=== PATIENT | female | born 2000 | race Caucasian/White ===

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

== ENCOUNTER 2018-05-15 18:25 | Emergency (ER) | payer MEDICAID, OTHER ==
[2018-05-15] MEDS ORDERED: PHENAZOPYRIDINE HCL 200 MG TABLET PO ONE (20:32)
--- NOTE | 2018-05-15 20:57 | ER Document Report ---
HPI - HPI Patient complains to provider of: dysuria Time Seen by Provider: 05/15/18 20:10 Pain Level: 5 Context: Patient is a 18-year-old female presenting to the emergency department with her mother for dysuria. Patient states she has had dysuria for the last week. Mother states she just recently told her about the dysuria. Patient states it has been really hard to urinate for the last 3 days. Patient states when she urinates she feels a burning sensation, unsure if this is coming from her urine or if it is touching lesions in her vagina which are causing the pain. Mother states patient's only medical history is bipolar, and anxiety. Patient is obviously delayed, holding a stuffed animal and using baby talk when answering questions. Past medical history: Anxiety, bipolar medications: BuSpar, Ativan, Celexa, desmopressin, Seroquel, Topamax Allergies: None - URINARY Urinary: REPORTS: Dysuria - REPRODUCTIVE Reproductive: DENIES: : Past Medical History - General Information source: Patient, Parent - Social History Smoking Status: Never Smoker Chew tobacco use (# tins/day): No Drug Abuse: None Lives with: Family Family History: Reviewed & Not Pertinent Patient has suicidal ideation: No Patient has homicidal ideation: No Renal/ Medical History: Denies: Hx Peritoneal Dialysis Psychiatric Medical History: Reports: Hx Attention Deficit Hyperactivity Disorder, Hx Bipolar Disorder, Hx Depression, Hx Schizophrenia - Immunizations Immunizations up to date: Yes Hx Diphtheria, Pertussis, Tetanus Vaccination: Yes Vertical Provider Document - CONSTITUTIONAL Agree With Documented VS: Yes Notes: GENERAL: Alert, interacts well. No acute distress. HEAD: Normocephalic, atraumatic. EYES: Pupils equal, round, and reactive to light. Extraocular movements intact. ENT: Oral mucosa moist, tongue midline. NECK: Full range of motion. Supple. Trachea midline. LUNGS: Clear to auscultation bilaterally, no wheezes, rales, or rhonchi. No respiratory distress. HEART: Regular rate and rhythm. No murmur ABDOMEN: Obese soft, non-tender. Non-distended. Bowel sounds present in all 4 quadrants. EXTREMITIES: Moves all 4 extremities spontaneously. No edema, normal radial and dorsalis pedis pulses bilaterally. No cyanosis. BACK: no cervical, thoracic, lumbar midline tenderness. No saddle anesthesia, normal distal neurovascular exam. NEUROLOGICAL: Alert and oriented x3. Talking in baby talk, mother states this is patient's normal due to her bipolar. Cranial nerves II through XII grossly intact. PSYCH: Normal affect, normal mood. SKIN: Warm, dry, normal turgor. No rashes or lesions noted. - INFECTION CONTROL TRAVEL OUTSIDE OF THE [place] IN LAST 30 DAYS: No Course - Re-evaluation Re-evalutation: 05/15/18 20:58 I assisted nursing staff in getting urine sample via catheter. Patient states she was unable to urinate because it hurts so much. External vaginal exam revealed white and green discharge, beefy red labia minora. Discussed doing a pelvic exam with mother to rule out other reasons for her dysuria, vaginal discharge. Mother states she is okay with having the patient go through a pelvic exam. Discussed at length what a pelvic exam was with the patient and she also agrees. 05/15/18 23:04 Pelvic exam reveals malodorous white discharge. Labia minora and vaginal pain beefy red and irritated. Test came back with positive yeast, positive bacterial vaginosis. Will treat patient for same. Nurse was able to drain the patient's bladder with a urine catheter. Patient states she feels a lot better. Urine reveals no signs of infection. - Vital Signs Vital signs: Temp Pulse Resp BP Pulse Ox 98.6 F 106 H 16 144/93 H 99 05/15/18 18:38 05/15/18 18:38 05/15/18 18:38 05/15/18 18:38 05/15/18 18:38 Discharge - Discharge Clinical Impression: Yaa albicans infection, Bacterial vaginosis Condition: Stable Disposition: HOME, SELF-CARE Instructions: Vaginal Yeast Infection ([facility]), Vaginosis, Bacterial ([facility]) Additional Instructions: You should use medications as prescribed. Please follow-up with the patient's primary care provider or EMPLOYEE BENEFITS ADMINISTRATOR. Please return to the emergency room for any other concerning symptoms. Prescriptions: Fluconazole [Diflucan] 150 mg PO ONCE PRN #1 tablet PRN Reason: Metronidazole [Flagyl 500 mg Tablet] 500 mg PO BID #14 tablet
[2018-05-15 21:12] LABS: APPEARANCE,URINE SLIGHTLY-CLOUDY; BILIRUBIN,URINE NEGATIVE (NEGATIVE); COLOR,URINE YELLOW; GLUCOSE, URINE NEGATIVE (NEGATIVE); KETONES,URINE NEGATIVE (NEGATIVE); LEUKOCYTE ESTERASE,URINE NEGATIVE (NEGATIVE); NITRITE,URINE NEGATIVE (NEGATIVE); PROTEIN,URINE NEGATIVE (NEGATIVE); URINE SPECIFIC GRAVITY 1.031
[2018-05-15 21:35] LABS: BACTERIA (WET MOUNT) 3+ BACTERIA SEEN; T.VAGINALIS (WET MOUNT) NO TRICHOMONAS SEEN; WBCS (WET MOUNT) 3+ WBCS SEEN; YEAST (WET MOUNT) YEAST SEEN
[2018-05-15] MEDS ORDERED: FLUCONAZOLE 100 MG TABLET PO ONE (21:55)
[2018-05-15] MEDS ORDERED: MICONAZOLE NITRATE 2% VAGINAL CREAM 45 GM TUBE VG ONE (21:56)
[2018-05-15] MEDS ORDERED: MICONAZOLE NITRATE 2% VAGINAL CREAM 45 GM TUBE ONE (22:13)
[2018-05-15 22:58] LABS: CHLAM PCR NOT DETECTED (NOT DETECT); GON PCR NOT DETECTED (NOT DETECT)
[2018-05-16 01:12] VITALS: BP 130/85
== END 2018-05-15 23:30 | disposition home or self-care (01) ==
LOC: ER 18:25
DX: N76.0 Acute vaginitis (principal); B96.89 Other specified bacterial agents as the cause of diseases classified elsewhere; B37.9 Candidiasis, unspecified; F41.9 Anxiety disorder, unspecified; F31.9 Bipolar disorder, unspecified; F20.9 Schizophrenia, unspecified; Z79.899 Other long term (current) drug therapy
CPT/HCPCS: 99283; 51701; 87210; 81025; 81001; 87491; 87591; J3490 ×3; C1758

== ENCOUNTER 2019-02-13 11:32 | Emergency (ER) | payer MEDICAID ==
--- NOTE | 2019-02-13 13:24 | ER Document Report ---
ED Medical Screen (RME) - General Chief Complaint: Hip Pain Stated Complaint: FLANK PAIN Time Seen by Provider: 02/13/19 13:15 Mode of Arrival: Ambulatory Information source: Patient Notes: Patient is a 19-year-old female presents emergency department chief complaint of right low back pain and right lower quadrant pain. Patient reports she has had chronic hip pain in the past, is unclear if this is what is causing her pain today. Mother reports the pain has been going on for 3 months. Patient denies any dysuria or urinary frequency. Exam: Tenderness to palpation to right lumbar paraspinous area Unable to appropriately assess abdomen due to position in triage. I have greeted and performed a rapid initial assessment of this patient. A comprehensive ED assessment and evaluation of the patient, analysis of test results and completion of the medical decision making process will be conducted by additional ED providers. I have specifically instructed the patient or family members with the patient to immediately return to any nursing staff should anything change in the patient's condition or with their chief complaint. This medical record was dictated with voice recognizing software. There may be grammatical, syntax errors that are unintended. TRAVEL OUTSIDE OF THE [place] IN LAST 30 DAYS: No - Related Data Allergies/Adverse Reactions: No Known Allergies Allergy (Verified 11/11/17 18:21) Past Medical History - Social History Chew tobacco use (# tins/day): No Frequency of alcohol use: None Drug Abuse: None Renal/ Medical History: Denies: Hx Peritoneal Dialysis Psychiatric Medical History: Reports: Hx Attention Deficit Hyperactivity Disorder, Hx Bipolar Disorder, Hx Depression, Hx Schizophrenia - Immunizations Immunizations up to date: Yes Hx Diphtheria, Pertussis, Tetanus Vaccination: Yes Physical Exam - Vital signs Vitals: Temp Pulse Resp BP Pulse Ox 98.0 F 124 H 20 135/97 H 96 02/13/19 11:39 02/13/19 11:39 02/13/19 11:39 02/13/19 11:39 02/13/19 11:39 Course - Vital Signs Vital signs: Temp Pulse Resp BP Pulse Ox 98.0 F 124 H 20 135/97 H 96 02/13/19 11:39 02/13/19 11:39 02/13/19 11:39 02/13/19 11:39 02/13/19 11:39
[2019-02-13] MEDS ORDERED: KETOROLAC TROMETHAMINE INJ/PF 30 MG/1 ML SDV IV ONE (14:24)
[2019-02-13] MEDS ORDERED: NORMAL SALINE 1000 ML 1,000 ML IV ONE (14:24)
[2019-02-13] MEDS ORDERED: ONDANSETRON HCL INJ/PF 4 MG/2 ML SDV IV ONE (14:24)
--- NOTE | 2019-02-13 15:04 | ER Document Report ---
ED General - General Chief Complaint: Hip Pain Stated Complaint: FLANK PAIN Time Seen by Provider: 02/13/19 13:15 Primary Care Provider: EPHRAIM SANCHEZ DO [Primary Care Provider] - Follow up as needed Mode of Arrival: Ambulatory Information source: Patient, Parent TRAVEL OUTSIDE OF THE [place] IN LAST 30 DAYS: No - HPI Notes: Patient presents with 3 weeks of right-sided lower abdominal pain that goes into her back. It also appears to involve her hip. She states she has a history of chronic right hip pain in the past. No known falls or trauma. No fevers. She states she has been constipated and has had difficulty urinating. She denies vomiting. She states she has had a normal appetite has been eating normally. Patient has had no fevers or rashes. The pain is constant and moderate to severe. Nothing makes it better or worse. it is a sharp pain. - Related Data Allergies/Adverse Reactions: No Known Allergies Allergy (Verified 11/11/17 18:21) Past Medical History - General Information source: Patient - Social History Smoking Status: Never Smoker Chew tobacco use (# tins/day): No Frequency of alcohol use: None Drug Abuse: None Family History: Reviewed & Not Pertinent Patient has suicidal ideation: No Patient has homicidal ideation: No Renal/ Medical History: Denies: Hx Peritoneal Dialysis Psychiatric Medical History: Reports: Hx Attention Deficit Hyperactivity Disorder, Hx Bipolar Disorder, Hx Depression, Hx Schizophrenia - Immunizations Immunizations up to date: Yes Hx Diphtheria, Pertussis, Tetanus Vaccination: Yes Review of Systems - Review of Systems Constitutional: denies: Chills, Fever Cardiovascular: denies: Chest pain, Syncope Respiratory: denies: Cough, Short of breath -: Yes All other systems reviewed and negative Physical Exam - Vital signs Vitals: Temp Pulse Resp BP Pulse Ox 98.0 F 124 H 20 135/97 H 96 02/13/19 11:39 02/13/19 11:39 02/13/19 11:39 02/13/19 11:39 02/13/19 11:39 Interpretation: Tachycardic - General General appearance: Appears well, Alert - HEENT Head: Normocephalic, Atraumatic Eyes: Normal Pupils: PERRL - Respiratory Respiratory status: No respiratory distress Chest status: Nontender Breath sounds: Normal Chest palpation: Normal - Cardiovascular Rhythm: Tachycardia Heart sounds: Normal auscultation Murmur: No - Abdominal Inspection: Normal Distension: No distension Bowel sounds: Normal Tenderness: Tender - Patient does have some tenderness of the right lower quadrant. Organomegaly: No organomegaly - Back Back: Normal, Tender - Patient does have some tenderness to palpation of the right flank - Extremities General upper extremity: Normal inspection, Nontender, Normal color, Normal ROM, Normal temperature General lower extremity: Normal inspection, Nontender, Normal color, Normal ROM, Normal temperature, Normal weight bearing. No: Michael's sign - Neurological Neuro grossly intact: Yes Cognition: Normal Orientation: AAOx4 [place] Coma Scale Eye Opening: Spontaneous [place] Coma Scale Verbal: Oriented Jessica Coma Scale Motor: Obeys Commands [place] Coma Scale Total: 15 Speech: Normal Motor strength normal: LUE, RUE, LLE, RLE Sensory: Normal - Psychological Associated symptoms: Normal affect, Normal mood - Skin Skin Temperature: Warm Skin Moisture: Dry Skin Color: Normal Course - Vital Signs Vital signs: Temp Pulse Resp BP Pulse Ox 98.0 F 124 H 20 135/97 H 96 02/13/19 11:39 02/13/19 11:39 02/13/19 11:39 02/13/19 11:39 02/13/19 11:39 - Laboratory Result Diagrams: 02/13/19 15:45 02/13/19 15:45 Laboratory results interpreted by me: 02/13/19 02/13/19 02/13/19 15:00 15:45 15:45 RDW 15.7 H AST 42 H Urine Protein 30 H Urine Blood MODERATE H Ur Leukocyte Esterase TRACE H - Diagnostic Test Radiology reviewed: Image reviewed, Reports reviewed Radiology results interpreted by me: 02/13/19 19:31 Abdomen/Pelvis CT 02/13/19 14:24 IMPRESSION: Mild right hydronephrosis secondary to a 2 mm calculus at the right UVJ. Discharge - Discharge Clinical Impression: UTI (urinary tract infection) Qualifiers: Urinary tract infection type: acute cystitis Hematuria presence: with hematuria Qualified Code(s): N30.01 - Acute cystitis with hematuria Urolithiasis Qualifiers: Urinary calculus location: lower urinary tract Qualified Code(s): N21.9 - Calculus of lower urinary tract, unspecified; N21 - Calculus of lower urinary tract Condition: Stable Disposition: HOME, SELF-CARE Instructions: Urinary Tract Infection ([facility]) Additional Instructions: Please call Dr. Hussein first thing in the morning to arrange follow-up. Prescriptions: Tramadol HCl [Ultram 50 mg Tablet] 50 mg PO Q4HP PRN #12 tab PRN Reason: Cefdinir 300 mg PO BID 7 Days #14 capsule Referrals: MELISA HUSSEIN MD [NO LOCAL MD] - Follow up tomorrow
[2019-02-13 15:24] LABS: APPEARANCE,URINE CLOUDY; BILIRUBIN,URINE NEGATIVE (NEGATIVE); COLOR,URINE YELLOW; GLUCOSE, URINE NEGATIVE (NEGATIVE); KETONES,URINE NEGATIVE (NEGATIVE); LEUKOCYTE ESTERASE,URINE TRACE (NEGATIVE); NITRITE,URINE NEGATIVE (NEGATIVE); PROTEIN,URINE 30 mg/dL (NEGATIVE); URINE SPECIFIC GRAVITY 1.027; UROBILINOGEN,URINE NEGATIVE mg/dL (<2.0)
[2019-02-13 16:05] LABS: ABSOLUTE LYMPHOCYTES (AUTO) 2.4 10^3/uL (0.5-4.7); ABSOLUTE MONOCYTES (AUTO) 0.5 10^3/uL (0.1-1.4); ABSOLUTE NEUT (AUTO) 4.9 10^3/uL (1.7-8.2); BASOPHILS % (AUTO) 0.2 % (0-2); HEMATOCRIT 39.9 % (36.0-47.0); HEMOGLOBIN 13.3 g/dL (12.0-15.5); LYMPHOCYTES % (AUTO) 30.5 % (13-45); MEAN CORPUSCULAR HEMOGLOBIN 27.7 pg (27.0-33.4); MEAN CORPUSCULAR HGB CONC 33.4 g/dL (32.0-36.0); MEAN CORPUSCULAR VOLUME 83 fl (80-97); MONOCYTES % (AUTO) 6.7 % (3-13); PLATELET COUNT 234 10^3/uL (150-450); RED BLOOD COUNT 4.82 10^6/uL (3.72-5.28); RED CELL DISTRIBUTION WIDTH 15.7 % (11.5-14.0); SEGMENTED NEUTROPHILS % (AUTO) 62.6 % (42-78); TOTAL CELLS COUNTED % (AUTO) 100 %; WHITE BLOOD COUNT 7.9 10^3/uL (4.0-10.5)
[2019-02-13 16:24] LABS: ALBUMIN 4.6 g/dL (3.5-5.0); ALKALINE PHOSPHATASE 104 U/L (38-126); ANION GAP 11 (5-19); ASPARTATE AMINO TRANSFERASE 42 U/L (14-36); BILIRUBIN,DIRECT 0.3 mg/dL (0.0-0.4); BILIRUBIN,TOTAL 0.4 mg/dL (0.2-1.3); BLOOD UREA NITROGEN 10 mg/dL (7-20); CALCIUM 9.3 mg/dL (8.4-10.2); CARBON DIOXIDE 25 mmol/L (22-30); CHLORIDE 104 mmol/L (98-107); GLUCOSE 93 mg/dL (75-110); POTASSIUM 3.8 mmol/L (3.6-5.0); TOTAL PROTEIN 7.6 g/dL (6.3-8.2)
--- NOTE | 2019-02-13 19:20 | RADIOLOGY REPORT (SQ) ---
EXAM DESCRIPTION: CT ABD/PELVIS WITH IV ONLY COMPLETED DATE/TIME: 02/13/2019 6:36 pm REASON FOR STUDY: abd pain COMPARISON: None. TECHNIQUE: CT scan of the abdomen and pelvis performed using helical scanning technique with dynamic intravenous contrast injection. No oral contrast. Images reviewed with lung, soft tissue, and bone windows. Reconstructed coronal and sagittal MPR images reviewed. Delayed images for evaluation of the urinary system also acquired. All images stored on PACS. All CT scanners at this facility use dose modulation, iterative reconstruction, and/or weight based d osing when appropriate to reduce radiation dose to as low as reasonably achievable (ALARA). [facility]: Dose Right [facility]: CareDose [facility]: Dose Right [facility]: Teradose 4D [facility]: [facility] CONTRAST TYPE AND DOSE: contrast/concentration: Isovue 350.00 mg/ml; Total Contrast Delivered: 100.0 ml; Total Saline Delivered: 72.0 ml RENAL FUNCTION: BUN 10 creatinine 0.94 RADIATION DOSE: CT Rad equipment meets quality standard of care and radiation dose reduction techniq ues were employed. CTDIvol: 26.1 - 28.0 mGy. DLP: 2847 mGy-cm.. LIMITATIONS: None. FINDINGS: LOWER CHEST: No significant findings. No nodules or infiltrates. LIVER: Normal size. No masses. No dilated ducts. SPLEEN: Normal size. No focal lesions. PANCREAS: No masses. No significant calcifications. No adjacent inflammation or peripancreatic fluid collections. Pancreatic duct not dilated. GALLBLADDER: No identified stones by CT criteria. No inflammatory changes to suggest cholecystitis. ADRENAL GLANDS: No significant masses or asymmetry. RIGHT KIDNEY AND URETER: No solid masses. 2 mm calculus at the UVJ. Mild right hydronephrosis. LEFT KIDNEY AND URETER: No solid masses. No significant calcifications. No hydronephrosis or hydr oureter. AORTA AND VESSELS: No aneurysm. No dissection. Renal arteries, SMA, celiac without stenosis. RETROPERITONEUM: No retroperitoneal adenopathy, hemorrhage or masses. BOWEL AND PERITONEAL CAVITY: No masses or inflammatory changes. No free fluid or peritoneal masses. APPENDIX: Normal. PELVIS: No mass. No free fluid. Normal bladder. ABDOMINAL WALL: No masses. No hernias. BONES: No significant or acute findings. OTHER: No other significant finding. IMPRESSION: Mild right hydronephrosis secondary to a 2 mm calculus at the right UVJ. TECHNICAL DOCUMENTATION: JOB ID: [id number] Quality ID # [id number]: Final reports with documentation of one or more dose reduction techniques (e.g., Au tomated exposure control, adjustment of the mA and/or kV according to patient size, use of iterative reconstruction technique) 2010 [employer]- All Rights Reserved Reading location - IP/workstation name: [email or web address]
[2019-02-13] MEDS ORDERED: CEFTRIAXONE 1 GM/D5W RTU 1 GM/50 ML RTUPB IV ONE (19:30)
[2019-02-13 20:53] VITALS: BP 136/88
== END 2019-02-13 20:53 | disposition home or self-care (01) ==
LOC: ER 11:32
DX: N30.01 Acute cystitis with hematuria (principal); N21.9 Calculus of lower urinary tract, unspecified; G89.29 Other chronic pain; M25.551 Pain in right hip; K59.00 Constipation, unspecified; R00.0 Tachycardia, unspecified; R10.9 Unspecified abdominal pain
CPT/HCPCS: 36415; 85025; 81025; 80053; 81001; 74177; J1885; J2405; J7030; J0696

== ENCOUNTER 2019-07-20 13:06 | Emergency (ER) | payer MEDICAID ==
[2019-07-20] MEDS ORDERED: ASPIRIN 81 MG TABLET, CHEWABLE PO ONE (13:44)
[2019-07-20] MEDS ORDERED: NORMAL SALINE 1000 ML 1,000 ML IV ONE ×4 (13:44→20:28)
[2019-07-20] MEDS ORDERED: ONDANSETRON HCL INJ/PF 4 MG/2 ML SDV IV ONE (13:45)
--- NOTE | 2019-07-20 13:45 | ER Document Report ---
ED Medical Screen (RME) - General Chief Complaint: Shortness Of Breath Stated Complaint: BREATHING PROBLEMS Time Seen by Provider: 07/20/19 13:39 Primary Care Provider: EPHRAIM SANCHEZ DO [Primary Care Provider] - Follow up as needed Information source: Patient Notes: Patient presents complaining of difficulty breathing for the past 5 months that worsened today. Patient does report upper chest discomfort that started yesterday. Patient complains of sore throat as well. Patient denies any cough. Patient does report nausea and dizziness. I have greeted and performed a rapid initial assessment of this patient. A comprehensive ED assessment and evaluation of the patient, analysis of test results and completion of the medical decision making process will be conducted by additional ED providers. TRAVEL OUTSIDE OF THE [place] IN LAST 30 DAYS: No - Related Data Allergies/Adverse Reactions: No Known Allergies Allergy (Verified 07/20/19 13:38) Past Medical History Renal/ Medical History: Denies: Hx Peritoneal Dialysis Psychiatric Medical History: Reports: Hx Attention Deficit Hyperactivity Disorder, Hx Bipolar Disorder, Hx Depression, Hx Schizophrenia - Immunizations Immunizations up to date: Yes Hx Diphtheria, Pertussis, Tetanus Vaccination: Yes Physical Exam - Vital signs Vitals: Temp Pulse Resp BP Pulse Ox 97.3 F 127 H 22 H 144/122 H 100 07/20/19 13:12 07/20/19 13:12 07/20/19 13:12 07/20/19 13:12 07/20/19 13:12 - Cardiovascular Rhythm: Tachycardia Heart sounds: S1 appreciated, S2 appreciated Murmur: No Course - Vital Signs Vital signs: Temp Pulse Resp BP Pulse Ox 97.3 F 127 H 22 H 144/122 H 100 07/20/19 13:12 07/20/19 13:12 07/20/19 13:12 07/20/19 13:12 07/20/19 13:12 Doctor's Discharge - Discharge Referrals: EPHRAIM SANCHEZ DO [Primary Care Provider] - Follow up as needed
--- NOTE | 2019-07-20 14:41 | RADIOLOGY REPORT (SQ) ---
EXAM DESCRIPTION: CHEST 2 VIEWS COMPLETED DATE/TIME: 07/20/2019 2:17 pm REASON FOR STUDY: cp, sob COMPARISON: 05/13/2014. EXAM PARAMETERS: NUMBER OF VIEWS: two views TECHNIQUE: Digital Frontal and Lateral radiographic views of the chest acquired. RADIATION DOSE: NA LIMITATIONS: none FINDINGS: LUNGS AND PLEURA: No opacities, masses or pneumothorax. No pleural effusion. MEDIASTINUM AND HILAR STRUCTURES: No masses or contour abnormalities. HEART AND VASCULAR STRUCTURES: Heart normal size. No evidence for failure. BONES: No acute findings. HARDWARE: None in the chest. OTHER: No other significant finding. IMPRESSION: NO ACUTE RADIOGRAPHIC FINDING IN THE CHEST. TECHNICAL DOCUMENTATION: JOB ID: [id number] [employer]- All Rights Reserved Reading location - IP/workstation name: [email or web address]
[2019-07-20 15:12] LABS: ABSOLUTE LYMPHOCYTES (AUTO) 2.3 10^3/uL (0.5-4.7); ABSOLUTE MONOCYTES (AUTO) 0.4 10^3/uL (0.1-1.4); ABSOLUTE NEUT (AUTO) 4.4 10^3/uL (1.7-8.2); BASOPHILS % (AUTO) 0.2 % (0-2); HEMATOCRIT 36.8 % (36.0-47.0); HEMOGLOBIN 11.9 g/dL (12.0-15.5); LYMPHOCYTES % (AUTO) 32.5 % (13-45); MEAN CORPUSCULAR HEMOGLOBIN 24.8 pg (27.0-33.4); MEAN CORPUSCULAR HGB CONC 32.4 g/dL (32.0-36.0); MEAN CORPUSCULAR VOLUME 77 fl (80-97); MONOCYTES % (AUTO) 5.2 % (3-13); PLATELET COUNT 221 10^3/uL (150-450); RED CELL DISTRIBUTION WIDTH 19.7 % (11.5-14.0); SEGMENTED NEUTROPHILS % (AUTO) 62.1 % (42-78); TOTAL CELLS COUNTED % (AUTO) 100 %
[2019-07-20 15:41] LABS: ALKALINE PHOSPHATASE 100 U/L (38-126); ANION GAP 9 (5-19); ASPARTATE AMINO TRANSFERASE 20 U/L (14-36); BILIRUBIN,TOTAL 0.3 mg/dL (0.2-1.3); BLOOD UREA NITROGEN 15 mg/dL (7-20); CALCIUM 9.1 mg/dL (8.4-10.2); CARBON DIOXIDE 23 mmol/L (22-30); CHLORIDE 107 mmol/L (98-107); GLUCOSE 90 mg/dL (75-110); POTASSIUM 4.1 mmol/L (3.6-5.0); TOTAL PROTEIN 7.2 g/dL (6.3-8.2)
--- NOTE | 2019-07-20 17:56 | ER Document Report ---
ED General - General Chief Complaint: Breathing Difficulty Stated Complaint: BREATHING PROBLEMS Time Seen by Provider: 07/20/19 13:39 Primary Care Provider: EPHRAIM SANCHEZ DO [NO LOCAL MD] - Follow up in 3-5 days FRANCISCO MURPHY MD [EMERITUS] - Follow up in 3-5 days Notes: 19-year-old female presents with history of difficulty breathing for the last 5 months that has gotten worse today. Patient also states upper chest discomfort that started yesterday. Patient also states associated nausea and dizziness. Patient denies any fever or coughing. Patient denies any recent long distance travel, recent hospitalizations, recent surgeries, personal history of cancer, family history of PE or DVT. Patient states she is on control. Patient denies any history of asthma or COPD. Patient does states she used to smoke in the past. TRAVEL OUTSIDE OF THE [place] IN LAST 30 DAYS: No - Related Data Allergies/Adverse Reactions: No Known Allergies Allergy (Verified 07/20/19 13:38) Home Medications: see attached copy. Realo/PB Past Medical History - General Information source: Patient - Social History Smoking Status: Never Smoker Chew tobacco use (# tins/day): No Frequency of alcohol use: None Drug Abuse: None Family History: Reviewed & Not Pertinent Patient has suicidal ideation: No Patient has homicidal ideation: No Renal/ Medical History: Denies: Hx Peritoneal Dialysis Psychiatric Medical History: Reports: Hx Attention Deficit Hyperactivity Disorder, Hx Bipolar Disorder, Hx Depression, Hx Schizophrenia - Immunizations Immunizations up to date: Yes Hx Diphtheria, Pertussis, Tetanus Vaccination: Yes Review of Systems - Review of Systems Notes: Constitutional: Negative for fever. HENT: Negative for sore throat. Eyes: Negative for visual changes. Cardiovascular: Positive for chest pain. Respiratory: Positive for shortness of breath. Gastrointestinal: Positive for nausea. Negative for abdominal pain, vomiting or diarrhea. Genitourinary: Negative for dysuria. Musculoskeletal: Negative for back pain. Skin: Negative for rash. Neurological: Positive for dizziness. Negative for headaches, weakness or numbness. 10 point ROS negative except as marked above and in HPI. Physical Exam - Vital signs Vitals: Temp Pulse Resp BP Pulse Ox 97.3 F 127 H 22 H 144/122 H 100 07/20/19 13:12 07/20/19 13:12 07/20/19 13:12 07/20/19 13:12 07/20/19 13:12 - Notes Notes: GENERAL: Well-appearing, well-nourished and in no acute distress. HEAD: Atraumatic, normocephalic. EYES: Extraocular movements intact, sclera anicteric, conjunctiva are normal. NECK: Normal range of motion, supple without lymphadenopathy or JVD. LUNGS: Breath sounds clear to auscultation bilaterally and equal. No wheezes rales or rhonchi. HEART: Tachycardic without murmurs, rubs or gallops. EXTREMITIES: Normal range of motion, no pitting or edema. No clubbing or cyanosis. NEUROLOGICAL: Cranial nerves II through XII grossly intact. Normal speech, normal gait. PSYCH: Normal mood, normal affect. SKIN: Warm, Dry, normal turgor, no rashes or lesions noted. Course - Re-evaluation Re-evalutation: 07/20/19 19-year-old female presents for difficulty breathing and chest pain. Patient is nontoxic, well-appearing. Patient is mildly tachycardic. Not hypoxic. EKG shows sinus tachycardia. Chest x-ray is negative. Patient is on control which is her only risk factor for PE. D-dimer was added. Trop onin is pending. 07/20/19 17:57 No leukocytosis. Mild anemia. CMP is WNL. HCG neg. 07/20/19 20:04 D dimer elevated. CTA chest ordered. 07/20/19 20:28 Trop negative. There was a delay with this due to lab/hard stick. 07/21/19 00:06 HR 105. CTA chest is negative for PE. 07/21/19 00:26 discussed all results with patient and patient's mother patient given close follow-up with PCP and census clerk. Strict return precautions given. Patient and patient's mother voiced understanding and agree with plan of care. Discussed also with attending, Dr. goldberg, who agrees with plan of care. - Vital Signs Vital signs: Temp Pulse Resp BP Pulse Ox 97.3 F 127 H 15 107/95 H 99 07/20/19 13:12 07/20/19 13:12 07/20/19 20:01 07/20/19 20:00 07/20/19 20:01 - Laboratory Result Diagrams: 07/20/19 14:51 07/20/19 14:51 Laboratory results interpreted by me: 07/20/19 07/20/19 14:51 18:30 Hgb 11.9 L MCV 77 L MCH 24.8 L RDW 19.7 H D-Dimer 0.77 H Discharge - Discharge Clinical Impression: Chest pain Qualifiers: Chest pain type: unspecified Qualified Code(s): R07.9 - Chest pain, unspecified Condition: Stable Disposition: HOME, SELF-CARE Instructions: Chest Pain of Unclear Cause ([facility]) Additional Instructions: Your work-up today including CT of your chest was reassuring. Please follow-up with your primary care doctor in 3 to 5 days. Please follow-up with a census clerk listed in 3 to 5 days. Return to ER for any worsening symptoms, including worsening chest pain, short worsening shortness of breath, feeling like you are going to pass out, passing out, fever, cough, dizziness, nausea/vomiting, or any other symptoms that are concerning to you. Referrals: EPHRAIM SANCHEZ DO [NO LOCAL MD] - Follow up in 3-5 days FRANCISCO MURPHY MD [EMERITUS] - Follow up in 3-5 days
--- NOTE | 2019-07-20 18:32 | EKG REPORT ---
SEVERITY:- OTHERWISE NORMAL ECG - SINUS TACHYCARDIA : Confirmed by: William Morton MD 20-Jul-2019 18:31:54
--- NOTE | 2019-07-20 22:23 | RADIOLOGY REPORT (SQ) ---
EXAM DESCRIPTION: CT CHEST ANGIOGRAPHY WITHOUT THEN WITH IV CONTRAST CLINICAL INDICATION: 19-year-old female with chest pain, dyspnea and elevated d-dimer. COMPARISON: None. EXAMINATION: CT angiography of the pulmonary arteries was performed following intravenous administration of contrast. Coronal and bilateral oblique maximum intensity projections (MIPS) were created. This exam was performed according to our departmental dose optimization program which includes use of automated exposure control, adjustment of the mA and/or kV according to patient size and/or use of iterative reconstruction technique. FINDINGS: Chest: Evaluation through the lungs reveals no focal opacity, pleural effusion or pneumothorax. There is minimal dependent basilar atelectasis and scarring. The tracheobronchial airways are patent. No significant mediastinal or axillary lymphadenopathy by CT measurement criteria. Heart size within normal limits. No pericardial effusion. Small hiatal hernia. Limited evaluation of the upper abdomen shows no acute intra-abdominal abnormalities. Borderline spinal megaly measuring 15.1 cm. The osseous structures are within normal limits. CT angiography: Diagnostic CT angiography of the pulmonary arteries without intraluminal filling defect noted to suggest pulmonary arterial embolus. IMPRESSION: 1. Diagnostic pulmonary angiography without findings to suggest pulmonary arterial embolus. 2. The lungs are clear without focal opacity, pleural effusion or pneumothorax. 3. No specific findings are noted to suggest etiology of the patient's chest pain and shortness of breath. 4. Borderline splenomegaly measuring 15.1 cm. 5. Small hiatal hernia.
[2019-07-21 00:46] VITALS: BP 164/80
== END 2019-07-21 00:46 | disposition home or self-care (01) ==
LOC: ER 13:06
DX: R07.9 Chest pain, unspecified (principal); D64.9 Anemia, unspecified; R06.02 Shortness of breath; R11.0 Nausea; R42 Dizziness and giddiness; R00.0 Tachycardia, unspecified; Z79.3 Long term (current) use of hormonal contraceptives
CPT/HCPCS: 93005; 99284; 96361; 96374; 36415; 84703; 85025; 80053; 84484; 85379; 71046; 71275; 93010; J2405; J7030

== ENCOUNTER → 2019-08-03 | Outpatient (CLI) | payer MEDICAID ==
--- NOTE | 2019-08-03 16:49 | RADIOLOGY REPORT (SQ) ---
EXAM DESCRIPTION: CHEST PA/LATERAL COMPLETED DATE/TIME: 08/03/2019 4:24 pm REASON FOR STUDY: OTHER CHEST PAIN, CHEST HEAVIENESS COMPARISON: Two-view chest 07/20/2019 EXAM PARAMETERS: NUMBER OF VIEWS: two views TECHNIQUE: Digital Frontal and Lateral radiographic views of the chest acquired. RADIATION DOSE: NA LIMITATIONS: none FINDINGS: LUNGS AND PLEURA: No opacities, masses or pneumothorax. No pleural effusion. MEDIASTINUM AND HILAR STRUCTURES: No masses or contour abnormalities. HEART AND VASCULAR STRUCTURES: Heart normal size. No evidence for failure. BONES: No acute findings. HARDWARE: None in the chest. OTHER: No other significant finding. IMPRESSION: NO SIGNIFICANT RADIOGRAPHIC FINDING IN THE CHEST. TECHNICAL DOCUMENTATION: JOB ID: [id number] [employer]- All Rights Reserved Reading location - IP/workstation name: [email or web address]
== END ==
LOC: RAD 16:07
PROVIDERS: ATTEND Nurse Practitioner Family
DX: R07.89 Other chest pain (principal)
CPT/HCPCS: 71046

== ENCOUNTER → 2019-10-17 | Outpatient (CLI) | payer MEDICAID ==
[2019-10-17 14:58] LABS: ABSOLUTE LYMPHOCYTES (AUTO) 2.3 10^3/uL (0.5-4.7); ABSOLUTE MONOCYTES (AUTO) 0.4 10^3/uL (0.1-1.4); ABSOLUTE NEUT (AUTO) 5.3 10^3/uL (1.7-8.2); BASOPHILS % (AUTO) 0.1 % (0-2); HEMATOCRIT 37.5 % (36.0-47.0); HEMOGLOBIN 12.3 g/dL (12.0-15.5); MEAN CORPUSCULAR HEMOGLOBIN 25.8 pg (27.0-33.4); MEAN CORPUSCULAR HGB CONC 32.7 g/dL (32.0-36.0); MEAN CORPUSCULAR VOLUME 79 fl (80-97); MONOCYTES % (AUTO) 4.8 % (3-13); PLATELET COUNT 247 10^3/uL (150-450); RED BLOOD COUNT 4.76 10^6/uL (3.72-5.28); RED CELL DISTRIBUTION WIDTH 16.7 % (11.5-14.0); SEGMENTED NEUTROPHILS % (AUTO) 66.1 % (42-78); TOTAL CELLS COUNTED % (AUTO) 100 %
[2019-10-17 15:23] LABS: ALBUMIN 4.2 g/dL (3.5-5.0); ALKALINE PHOSPHATASE 99 U/L (38-126); ANION GAP 7 (5-19); ASPARTATE AMINO TRANSFERASE 25 U/L (14-36); BILIRUBIN,TOTAL 0.3 mg/dL (0.2-1.3); BLOOD UREA NITROGEN 12 mg/dL (7-20); C-REACTIVE PROTEIN 21.4 mg/L (<10.0); CALCIUM 9.1 mg/dL (8.4-10.2); CARBON DIOXIDE 23 mmol/L (22-30); CHLORIDE 109 mmol/L (98-107); GLUCOSE 98 mg/dL (75-110); POTASSIUM 4.2 mmol/L (3.6-5.0); TOTAL PROTEIN 7.5 g/dL (6.3-8.2)
[2019-10-17 15:42] LABS: ERYTHROCYTE SEDIMENTATION RATE 68 mm/hr (0-20)
== END ==
LOC: OD 14:15
PROVIDERS: ATTEND Nurse Practitioner Family
DX: R19.7 Diarrhea, unspecified (principal); R63.4 Abnormal weight loss
CPT/HCPCS: 36415; 80053; 82272; 83993; 84443; 85025; 85652; 86140

== ENCOUNTER 2019-11-03 07:46 | Day surgery (SDC) | payer MEDICAID ==
[~2019-11-03 07:46] MED LIST: PROPOFOL INJ 200 MG/20 ML VIAL IV ONE
[2019-11-03] MEDS ORDERED: FENTANYL CITRATE INJ/PF 100 MCG/2 ML AMPUL IV PRN ×3 (09:33)
[2019-11-03] MEDS ORDERED: ONDANSETRON HCL INJ/PF 4 MG/2 ML SDV IV PRN (09:33)
[2019-11-03] MEDS ORDERED: DIPHENHYDRAMINE HCL 50 MG/ML VIAL IV PRN (09:33)
[2019-11-03 12:36] VITALS: BP 147/99
--- NOTE | 2019-11-03 13:30 | Operative Report ---
Operative Report DATE OF SURGERY: 11/03/19 Operative Report: The risk, benefits and alternatives of the procedure including the risk of bleeding, perforation requiring surgery have been explained to the patient in detail and informed consent has been obtained. Patient is taken back to the operating room and placed in the left, lateral decubital position. Timeout was called. Propofol medications administered. Rectal examination is done which did not reveal any masses, tears or fissures. An Olympus with scope was introduced into the patient's rectum. Scope was then carefully advanced all the way to the cecum. The cecum was identified by the usual anatomical landmarks including the ileocecal valve as well as the appendiceal office. Photodocumentation is obtained. The scope was then sequentially pulled back via the various segments of the colon including the ascending colon, hepatic flexure, transverse colon, splenic flexure, descending colon finding to the rectosigmoid portions of the colon. Retroflexion maneuver is performed. PREOPERATIVE DIAGNOSIS: Blood in stool, diarrhea rule out ulcerative colitis POSTOPERATIVE DIAGNOSIS: Mild terminal ileitis status post biopsy rule out Crohn's disease. Internal hemorrhoids OPERATION: Colonoscopy with biopsy SURGEON: [place] LAW ANESTHESIA: LMAC TISSUE REMOVED OR ALTERED: As noted above. COMPLICATIONS: None. ESTIMATED BLOOD LOSS: None. INTRAOPERATIVE FINDINGS: As noted above. PROCEDURE: Patient tolerated the procedure well. No immediate postprocedure complications are noted. Patient is discharged in good condition. Discharge date 11/03/2019. Discharge diet: Regular. Discharge activity: Regular. 2 to 3-week follow-up to discuss findings. Patient is instructed call the office or proceed to the emergency room should there be any further problems or questions. Wait on the pathology.
== END 2019-11-03 11:50 | disposition home or self-care (01) ==
LOC: OROUT 07:46
PROVIDERS: ATTEND Internal Medicine Gastroenterology
DX: K52.9 Noninfective gastroenteritis and colitis, unspecified (principal); K64.8 Other hemorrhoids; E66.9 Obesity, unspecified; F79 Unspecified intellectual disabilities; F31.89 Other bipolar disorder; Z79.899 Other long term (current) drug therapy
CPT/HCPCS: 45380; 88305 ×2; J2704; 811

== ENCOUNTER 2019-12-10 01:06 | Emergency (ER) | payer MEDICAID ==
[2019-12-10 02:09] LABS: ALBUMIN 4.3 g/dL (3.5-5.0); ALKALINE PHOSPHATASE 95 U/L (38-126); ANION GAP 9 (5-19); ASPARTATE AMINO TRANSFERASE 21 U/L (14-36); BILIRUBIN,TOTAL 0.3 mg/dL (0.2-1.3); BLOOD UREA NITROGEN 9 mg/dL (7-20); CALCIUM 9.1 mg/dL (8.4-10.2); CARBON DIOXIDE 25 mmol/L (22-30); CHLORIDE 106 mmol/L (98-107); GLUCOSE 121 mg/dL (75-110); POTASSIUM 3.6 mmol/L (3.6-5.0); TOTAL PROTEIN 7.5 g/dL (6.3-8.2)
--- NOTE | 2019-12-10 02:11 | ER Document Report ---
ED General - General Chief Complaint: Rectal Bleeding Stated Complaint: RECTAL BLEED Primary Care Provider: TEE TILLMAN NP [Primary Care Provider] - Follow up as needed Notes: Patient is a 19-year-old female with past medical history of morbid obesity, lactose intolerance, anxiety, schizophrenia who presents to the emergency department with a chief complaint of diarrhea for the past month. The patient reports that she was having some issues with lactose intolerance and was referred to a GI specialist. She states they elected to do a colonoscopy. She states since the time of the colonoscopy her lactose intolerance has reversed and she is able to tolerate lactose products however since the colonoscopy she has had diarrhea. She states this is associated with a mild intermittent abdominal discomfort. She reports that the diarrhea is streaked with bright red blood. She reports that the colonoscopy was reported as normal and was told that a polyp was removed but that it tested normal. She states she has not followed up with the GI doctor and she did not know what else to do in regards to the symptoms she is having after the colonoscopy so she came for evaluation. She denies any fever or vomiting. No urinary complaints. Patient requests to be straight cathed because she states urinating in a cup makes her nervous. TRAVEL OUTSIDE OF THE [place] IN LAST 30 DAYS: No - Related Data Allergies/Adverse Reactions: No Known Allergies Allergy (Verified 11/03/19 07:57) Home Medications: elavil, cogentin, buspar, citalopram, desmopresin, seroquel, topamax Past Medical History - Social History Smoking Status: Current Some Day Smoker Family History: Reviewed & Not Pertinent Patient has homicidal ideation: No - Past Medical History Cardiac Medical History: Denies: Hx Coronary Artery Disease, Hx Heart Attack, Hx Hypertension Pulmonary Medical History: Denies: Hx Asthma, Hx Bronchitis, Hx COPD, Hx Pneumonia Neurological Medical History: Denies: Hx Cerebrovascular Accident, Hx Seizures Renal/ Medical History: Denies: Hx Peritoneal Dialysis Musculoskeletal Medical History: Denies Hx Arthritis Psychiatric Medical History: Reports: Hx Attention Deficit Hyperactivity Disorder, Hx Bipolar Disorder, Hx Depression, Hx Schizophrenia - Immunizations Immunizations up to date: Yes Hx Diphtheria, Pertussis, Tetanus Vaccination: Yes Review of Systems - Review of Systems Gastrointestinal: Abdominal pain, Diarrhea, Rectal bleeding -: Yes All other systems reviewed and negative Physical Exam - Vital signs Vitals: Temp Pulse Resp BP Pulse Ox 98.6 F 126 H 20 149/118 H 99 12/10/19 01:19 12/10/19 01:19 12/10/19 01:19 12/10/19 01:19 12/10/19 01:19 - General General appearance: Appears well, Alert In distress: None - HEENT Head: Normocephalic, Atraumatic Eyes: Normal Conjunctiva: Normal Neck: Supple - Respiratory Respiratory status: No respiratory distress Chest status: Nontender Breath sounds: Normal Chest palpation: Normal - Cardiovascular Rhythm: Regular Heart sounds: Normal auscultation - Abdominal Inspection: Normal Distension: No distension Bowel sounds: Normal Tenderness: Nontender Organomegaly: No organomegaly - Rectal Tenderness: No Stool: Heme positive, See lab result Hemorrhoids: None Notes: Chaperoned by female nurse Linda - Neurological Neuro grossly intact: Yes Cognition: Normal Orientation: AAOx4 - Psychological Associated symptoms: Normal affect, Normal mood - Skin Skin Temperature: Warm Skin Moisture: Dry Skin Color: Normal Course - Re-evaluation Re-evalutation: 12/10/19 05:58 Patient has been unable to give a bowel sample since she has been here. She is had no episodes of diarrhea or any bowel movement whatsoever. She states that she does not wish to wait any longer and that she will call her doctor on Wednesday morning for an outpatient order for stool testing and an outpatient lab and she will also call her GI to get with them regarding these ongoing problems. She is having some blood per rectum but her H&H is stable. She has no acute process on the CT scan, chronically enlarged spleen. We discussed this. She is stable and appropriate for discharge and outpatient follow-up regarding this matter. I advised that she return here or any ER immediately with any new, persistent or worsening symptoms. She verbalized understood and agreed. - Vital Signs Vital signs: Temp Pulse Resp BP Pulse Ox 98.5 F 89 20 145/89 H 100 12/10/19 03:54 12/10/19 03:54 12/10/19 03:54 12/10/19 03:54 12/10/19 03:54 - Laboratory Result Diagrams: 12/10/19 01:44 12/10/19 01:44 Laboratory results interpreted by me: 12/10/19 12/10/19 12/10/19 01:44 01:44 02:58 MCV 79 L MCH 26.1 L RDW 18.0 H Glucose 121 H Urine Urobilinogen 2.0 H Discharge - Discharge Clinical Impression: Chronic diarrhea, Blood per rectum Condition: Stable Disposition: HOME, SELF-CARE Instructions: Diarrhea, Nonspecific ([facility]) Additional Instructions: Please call your doctor first thing Wednesday morning for reevaluation of your chronic diarrhea and possible order for outpatient stool sample testing. Please also call your customer support manager to discuss these chronic diarrhea problems since your colonoscopy with them. Please return here or any ER immediately with any new, persistent or worsening symptoms. Referrals: TEE TILLMAN, CASH POSTER [Primary Care Provider] - Follow up as needed
[2019-12-10 02:17] LABS: ABSOLUTE MONOCYTES (AUTO) 0.6 10^3/uL (0.1-1.4); TOTAL CELLS COUNTED % (AUTO) 100 %
[2019-12-10 02:20] LABS: PROTHROMBIN TIME 13.2 SEC (11.4-15.4)
[2019-12-10 02:24] LABS: ABSOLUTE LYMPHOCYTES (AUTO) 2.8 10^3/uL (0.5-4.7); ABSOLUTE NEUT (AUTO) 5.1 10^3/uL (1.7-8.2); BASOPHILS % (AUTO) 0.1 % (0-2); HEMATOCRIT 39.6 % (36.0-47.0); HEMOGLOBIN 13.1 g/dL (12.0-15.5); LYMPHOCYTES % (AUTO) 32.6 % (13-45); MEAN CORPUSCULAR HEMOGLOBIN 26.1 pg (27.0-33.4); MEAN CORPUSCULAR HGB CONC 33.1 g/dL (32.0-36.0); MEAN CORPUSCULAR VOLUME 79 fl (80-97); MONOCYTES % (AUTO) 6.8 % (3-13); PLATELET COUNT 256 10^3/uL (150-450); RED BLOOD COUNT 5.03 10^6/uL (3.72-5.28); SEGMENTED NEUTROPHILS % (AUTO) 60.5 % (42-78); WHITE BLOOD COUNT 8.5 10^3/uL (4.0-10.5)
[2019-12-10 03:33] LABS: APPEARANCE,URINE CLEAR; BILIRUBIN,URINE NEGATIVE (NEGATIVE); CALCIUM OXALATE CRYSTALS,URINE MODERATE /HPF; COLOR,URINE YELLOW; GLUCOSE, URINE NEGATIVE (NEGATIVE); KETONES,URINE NEGATIVE (NEGATIVE); LEUKOCYTE ESTERASE,URINE NEGATIVE (NEGATIVE); NITRITE,URINE NEGATIVE (NEGATIVE); PROTEIN,URINE NEGATIVE (NEGATIVE); URINE SPECIFIC GRAVITY 1.024
--- NOTE | 2019-12-10 04:26 | RADIOLOGY REPORT (SQ) ---
CT ABDOMEN AND PELVIS WITH INTRAVENOUS CONTRAST: 12/10/2019 3:23 AM CDT HISTORY: 19-year old with abdominal pain, diarrhea. COMPARISON: None available TECHNIQUE: Axial contiguous images were obtained from the lung bases to the proximal femurs with intravenous intravenous contrast administered. Sagittal and coronal reconstructions were also obtained and reviewed. This exam was performed according to our departmental dose-optimization program, which includes automated exposure control, adjustment of the mA and/or KV according to the patient's size and/or use of iterative reconstruction technique. FINDINGS: No focal consolidative airspace opacities are seen. No discrete pleural effusion is seen. The visualized hepatic parenchyma is low in attenuation. No focal enhancing lesion is seen. The gallbladder is contracted, and demonstrates no evidence of calcified gallstones The pancreas and bilateral adrenal glands are normal in size and contour. The spleen is enlarged and measures at least 15.8 cm in length. The kidneys demonstrate no evidence of hydronephrosis. Bladder is minimally distended, but grossly appears unremarkable. The uterus is present. There are small bilateral adnexal hypodensities, most likely representing cysts. The stomach is not well distended. The small bowel loops appear unremarkable. No pericolonic inflammatory stranding is seen. The appendix appears unremarkable. There is no evidence of pneumoperitoneum or free fluid. The aorta and IVC appear normal in size. No significantly enlarged lymph nodes are seen in the abdomen or pelvis. Review of the bone show no evidence of any suspicious lytic or blastic lesions. IMPRESSION: No acute process is seen within the abdomen or pelvis. Moderate splenomegaly
[2019-12-10 06:09] VITALS: BP 144/105
== END 2019-12-10 06:08 | disposition home or self-care (01) ==
LOC: ER 01:06
DX: K62.5 Hemorrhage of anus and rectum (principal); R19.7 Diarrhea, unspecified; R10.9 Unspecified abdominal pain; Z79.899 Other long term (current) drug therapy; F17.200 Nicotine dependence, unspecified, uncomplicated
CPT/HCPCS: 36415; 51701; 74177; 80053; 81001; 81025; 83690; 85025; 85610; 85730; 99284